=== PATIENT | female | born 1955 | race Caucasian/White ===

== ENCOUNTER 2022-05-19 06:11 | Observation (INO) ==
--- NOTE | 2022-05-10 16:54 | History & Physical Report ---
Date of Service May 10, 2022 Assessment & Plan (1) Osteoarthritis of left knee: Plan: PRE-OP Diagnosis: Left knee osteoarthritis Planned Procedure: Left total knee arthroplasty Plan: Patient is scheduled to undergo this procedure at the [facility] following the outpatient joint pathway on May 19, [address] Gudino. Risks and complications of the procedure such as: Infection, bleeding, pain, scarring, nerve blood vessel damage, weakness, wound problems, stiffness, incomplete relief of symptoms, hardware failure, hardware loosening, wear, fracture, tendon or ligament injury, blood clots, embolism, heart attack, stroke and were explained to the patient and her previous visit. Informed consent form procedure was obtained. Patient also understands risks of proceeding with surgical invention during the COVID-19 pandemic. Currently she is asymptomatic and has not been in contact with anyone positive for the virus recently. Preoperative medical clearance from her PCP is up-to-date, however she will see her PCP again on the due to the oxygen desaturation issue. Also up-to-date are CBC with differential, complete metabolic panel, PT/INR, blood type and screen, urinalysis, urine culture and sensitivity, EKG, h emoglobin A1c and a nasal culture for MRSA. During today's visit we reviewed the total knee packet. I answered all questions that the patient had in regards to her surgery. Patient states that she already has a walker, raised toilet seat and shower chair from her previous surgery. I again discussed antibiotic use following joint replacement surgery before dental procedures. We discussed the outpatient joint pathway and how it works. During today's visit the PDMP was checked and no red flags were raised that would prevent us from prescribing the patient an opioid analgesic for postoperative pain control. Prescriptions for oxycodone, diclofenac sodium, Zofran and Senokot were sent to the patient's pharmacy at her previous visit for her to use following surgery. I also provided her with prescriptions for tramadol to use for pain control prior to surgery. I also discussed with her that she will be on a baby aspirin twice daily for the first 30 days postoperatively for blood clot prevention. I also advised her that there is a possibility we will prescribe her an antibiotic before she is discharged from the hospital to use for infection prophylaxis. Patient plans on doing in-home physical therapy for the first 2 weeks postoperatively. I will provide this order to our nurse nurse manager and have this service set up. She is scheduled to see me for 2-week postoperative follow-up on June 01 at 10:45 AM. Patient verbalized understanding of all information provided during today's visit. She thanks for the care that she received. If she has questions or concerns that should arise prior to her surgery, she will contact clinic. This chart was completed utilizing [employer] voice recognition software. Grammatical errors, random word insertions, pronoun errors, and in complete sentences are an occasional consequence of the system. Any questions or concerns about the content, text, or information contained within the body of this dictation should be addressed directly to the physician for clarification. History of Present Illness Chief Complaint: Chief Complaint: Left knee pain Primary Care Provider: Kale Summers MD History of Present Illness (including history relevant to procedure): This 66-year-old female presents the clinic today for her second preoperative history and physical. Patient states that she underwent a right total knee arthroplasty with Dr. Gudino back on May 13, 2021 and has had great results. She states that over the past few months she has noticed significant pain in her left knee. She does have documented osteoarthritis. She states that she has reached full recovery for her right total knee arthroplasty and would like to undergo a left total knee arthroplasty at this time. Patient was initially scheduled for surgery on May 05. When she was in the preoperative area her O2 sats dropped to 90% when she was lying supine. Anesthesia was not comfortable with her proceeding so her surgery was canceled. Review Of Systems: A 12 point review of systems is performed and is unremarkable except for those things stated in the HPI and past medical history. Past Medical History: Problems: Right knee DJD Pre-op exam History of breast cancer Prediabetes BCC (basal cell carcinoma of skin) Weight disorder Biopsy of breast Cholecystectomy ENDOMETRIOSIS Breast mass Diagnostic aspiration of breast cyst DARIELA BSO - Total abdominal hysterectomy and bilateral salpingo-oophorectomy Procedure History Procedure Procedure Date Comments Chest x-ray 05/09/2022 - Impression:No active disease in the chest Total knee arthroplasty Right 05/13/2021 - Hitory of see scanned report TOTAL KNEE ARTHROPLASTY 05/13/2021 - right DEXA (dual energy X-ray absorptiometry) of lateral spine 05/07/2021 - Impression:AP spine L1-L4 T-score -1.3Femur neck left T-score -1.8Femur neck Right T-score -1.4Femur total left T-score -0.4Femur total right T-score -1.1Z-score -0.3 Punch biopsy of skin 12/02/2020 - 6mm Punch Colonoscopy 09/03/2020 - Pathology report showed 8 hyperplastic polyps and 1 serrated polyp. Repeat in 3 years. - COLO to cecum, hepatic flexure polyp 12 mm hot snare, 4 mm DC polyp CF, 7 sigmoid polyps CF Bilateral mastectomy 07/06/2020 COVID-19 vaccination 05/06/2020 - next one 06/03 Biopsy of breast 04/23/2020 - Stereotactic/tomosynthesis guided biopsy of faint loosely grouped calcifications within the right medial breast at approximately 2-3 o'clock, with clip placement. Mammogram of right breast 04/23/2020 - New biopsy clip status posrt right breast biopsy. Pathology results are pending. Mammography 04/15/2020 - 1. No suspicious mammographic or sonographic abnormality at the site of the palpable right upper outer quadrant breast lump pointed out by the patient. Recommend clinical follow-up.2. Faint loosely grouped amorphous in the right medial breast at approximately 2-3 o'clock are indeterminate and stereotactic biopsy is recommended for further evaluation.3. No mammographic evidence of malignancy in the left breast.4. Given the personal history of breast cancer and dense breasts mammographically, consider annual screening breast MRI in addition to annual mammography. MRI of breast 04/02/2020 - 1. No MRI evidence of malignancy in either breast. No enhancing mass or abnormality is seen at the site of the palpable lump pointed out by the patient in the right axillary tail region. Recommend clinical follow-up for the palpable right breast lump with associated pain, any decision to biopsy should be based off of clinical assessment.2. Note that the patient is also due for routine bilateral mammograms 04/11/20 therefore would recommend bilateral mammograms at this time and would recommend diagnostic mammograms given that the patient has a palpable lump.3. Given the personal history of breast cancer and dense breasts mammographically, consider annual screening bilateral breast MRI in addition to annual mammography which could be performed in 1 year. Electrodesiccation with curettage 05/08/2019 Shave biopsy 04/29/2019 - right upper chest Mammogram 01/09/2018 - ACR BI RADS Cat 1: negativeThere is no mammographic evidence of malignancy . Breast lumpectomy 2009 Cholecystectomy 2002 History of hysterectomy 1999 Allergies and Sensitivities: Adhesive bandage(rash) Current Home Meds: (Last Updated 05/10 15:12) albuterol (ProAir HFA 90 mcg/inh inhalation aerosol) 2 puff inhaled qid PRN: as needed for wheezing amoxicillin (amoxicillin 500 mg oral capsule) 2,000 mg PO As indicated one hour before dental and other procedures as directed azithromycin (Zithromax 250 mg oral tablet) 2 tablet x 1 day, then 1 tablet daily x 4 daysas directed on package labeling benzonatate (Tessalon 200 mg oral capsule) 200 mg PO q8h diclofenac (diclofenac sodium 75 mg oral delayed release tablet) 75 mg PO bid PRN: as needed for pain with food lidocaine topical (Lidoderm 5% topical patch) 1 patch topical Daily methylPREDNISolone (Medrol Dosepak 4 mg oral tablet) Take as directed on package labeling for 6 days. ondansetron (Zofran 4 mg oral tablet) 4 mg PO q8h post op nausea/vomiting oxyCODONE (oxyCODONE 5 mg oral tablet) 5 mg PO q4h post op pain control oxyCODONE (oxyCODONE 5 mg oral tablet) 1/2 tablet twice daily senna (Senokot 8.6 mg oral tablet) 8.6 mg PO qhs PRN: as needed for constipation with plenty of water traMADol (traMADol 50 mg oral tablet) 50 mg PO q4h PRN: as needed for pain not to exceed 400 mg/day Allergies Allergy/AdvReac Type Severity Reaction Status Date / Time adhesive Allergy Mild pruritic, Verified 05/02/22 08:39 erythematous rash morphine AdvReac Mild nausea, Verified 05/02/22 08:39 resolved with added medication, pt cannot recall Home Medications Medication Instructions Recorded Confirmed Type diclofenac sodium 75 mg 75 mg PO BID 05/02/22 05/05/22 History tablet,delayed release Past Med/Surg History Medical History Cancer RIGHT BREAST X 2: 2008-chemo + Herceptin; 2020-s/p bilat mastectomy and immediate pre-pectoral reconstruction 07/03/20 at [facility] [place]. Pt denies limb restriction History of COVID-19 12/2021, tested positive; asymptomatic pt Osteoarthritis Surgical History History of breast surgery RIGHT X 2-s/p bilat mastectomy and immediate pre-pectoral reconstruction 07/03/20 at [facility] [place]-limb restriction-rt side History of cholecystectomy History of hysterectomy TOTAL History of total right knee replacement R 05/13/21 epidural L4-L5 1 attempt + PNB. Hx of colonoscopy Hx of tonsillectomy Hx of wisdom tooth extraction Family History Father Family history of diabetes mellitus Social History Smoking Status: Never smoker Second Hand Exposure: Yes (growing up); Hx Alcohol Use: Yes Alcohol type: hard liquor Hx Substance Use: No Preferred Language: Bahamian Communication Ability: Effective Health Outcomes Liaison Required: No Beliefs That Will Affect Care: None Current Living Situation: Spouse current occupational status: retired Feels Safe at Home: Yes Assistive Devices: Glasses Review of Systems All systems reviewed & are unremarkable except as noted in Subjective Physical Exam Physical Exam: Physical Exam: (relevant to the procedure, including heart and lung evaluation) General: Alert and oriented x3 with proper grooming and hygiene Eyes: Pupils are equal and reactive to light with accommodation. Extraocular movements are intact Throat: Deferred due to COVID-19 precautions Cardiac: Regular rate and rhythm no murmurs or gallops appreciated Lungs: Clear to auscultation throughout with no wheezing, rales or rhonchi Abdomen: Mildly obese, nondistended, nontender with NABS Extremities: Left knee; range of motion is from 0 degrees of extension to 112 degrees of flexion. Patient experiences significant medial and lateral joint tenderness when knee is palpated in flexed position. Her patella is not mobile due to arthritic change within the patellofemoral joint. There is no varus or valgus laxity with stressing. AP drawer sign Indira test are negative. Patient was neurovascularly intact in the left lower extremity. Neuro: Cranial nerves II through XII are intact no motor or sensory deficit Skin: Normal appearance no open skin areas of discharge Results & Data ([facility]) Diagnostic Findings Studies (relevant to the procedure): X-rays done include bilateral PA flex views, and bilateral AP, lateral, Merchant views. These show right total knee arthroplasty components in good position with no evidence of complication. On the left knee, she has near [id number] arthritis in the medial tibial femoral compartment with tricompartmental osteophyte formation and lateral patellofemoral joint narrowing.
--- NOTE | 2022-05-12 13:13 | Anesthesiology Consultation ---
Date of Service May 12, 2022 Assessment & Plan (1) Encounter for pre-operative examination: Chart Review Chart Review: Acceptable Risk for Surgery (pending EKG DOS) and Patient NOT seen in Pre Admission Testing -Will repeat EKG stat DOS Pt initially scheduled 05/05/22- did arrive at hospital but noted to have congestion and O2 levels at 90%- decision was made to postpone surgery until symptoms improved. Covid test negative 05/05/22. Right UE limb restriction Upon review of chart- patient is an acceptable candidate for [facility] from anesthesia perspective. Pending patient is motivated, has good support and surgeon's office completes [facility] preop requirements- patient may proceed with outpatient TKA. -COVID screening: Per PAT nursing assessment on 05/12/22. Pt went to a concert 04/28/22 No known COVID-19 positive contacts or current COVID-19 related symptoms. Travel screen negative. Patient vaccinated for Covid. At surgeon discretion if preop Covid testing being done. Pt seen by PCP 05/02/22= seen for preoperative clearance. "She is medically stable and cleared for the scheduled TKA..." History Surgery Operation Date: 05/19/22 12:30 Proposed Procedures p Left Total Knee Arthroplasty - Evelio Gudino MD Height/Weight Height: 5 ft 2 in Weight: 79.379 kg Allergies Allergy/AdvReac Type Severity Reaction Status Date / Time adhesive Allergy Mild pruritic, Verified 05/12/22 12:55 erythematous rash morphine AdvReac Mild nausea, Verified 05/12/22 12:55 resolved with added medication, pt cannot recall Medications Home Medications Medication Instructions Recorded Confirmed Last Taken diclofenac sodium 75 mg 75 mg PO BID 05/02/22 05/12/22 05/02/22 07:00 tablet,delayed release Past Medical History Medical History (Updated 05/12/22 @ 13:39 by Ibeth Pimentel PA-C) Cancer RIGHT BREAST X 2 2008-chemo + Herceptin 2020-s/p bilat mastectomy and immediate pre-pectoral reconstruction 07[place]03[place] [facility] [place] History of COVID-19 12/2021, tested positive; asymptomatic pt Osteoarthritis Pre-diabetes Past Family History Family History Father Family history of diabetes mellitus Past Surgical History Surgical History History of breast surgery RIGHT X 2-s/p bilat mastectomy and immediate pre-pectoral reconstruction 07[place]03[place] [facility] [place]rt side History of cholecystectomy History of hysterectomy TOTAL History of total right knee replacement R 05/13/21 epidural L4-L5 1 attempt + PNB. Hx of colonoscopy Hx of tonsillectomy Hx of wisdom tooth extraction Social History Smoking Status: Never smoker Do You Dip or Chew Tobacco: No Hx Alcohol Use: Yes Alcohol type: hard liquor alcohol intake frequency: other Hx Substance Use: No substance use type: does not use Lab Results Anesthesia Preop Results Results Anesthesia Widget: WBC 5.76 K/ul (4.8-10.8) 04/11/22 Hgb 13.5 g/dl (12.0-16.0) 04/11/22 Hct 40.5 % (34.1-44.9) 04/11/22 Plt 317 K/uL (130-400) 04/11/22 Na 140 mmol/L (136-145) 04/11/22 K 4.2 mmol/L (3.5-5.1) 04/11/22 Cl 104 mmol/L (98-107) 04/11/22 CO2 31 mmol/L (21-32) 04/11/22 BUN 12 mg/dl (6-23) 04/11/22 Creat 0.72 mg/dl (0.6-1.2) 04/11/22 Glucose Level 93 mg/dl (70-99(Fasting)) 04/11/22 PT 10.3 Seconds (9.0-12.0) 04/11/22 INR 1.0 (0.9-1.1) 04/11/22 HA1c 6.0 % (4.5-5.6) H 04/11/22 Urine Color Yellow 04/11/22 Urine Appearance Clear (Clear) 04/11/22 Urine pH 5.0 (4.5-7.5) 04/11/22 Urine Specific [place] 1.020 (1.000-1.030) 04/11/22 Urine Protein Negative (Negative) 04/11/22 Urine Glucose (UA) Trace (Negative) H 04/11/22 Urine Ketones Trace (Negative) H 04/11/22 Urine Blood Trace (Negative) H 04/11/22 Urine Nitrite Negative (Negative) 04/11/22 Urine Bilirubin Negative (Negative) 04/11/22 Urine Urobilinogen Negative (Negative) 04/11/22 Urine Leukocyte Esterase Trace (Negative) H 04/11/22 Urine WBC (Auto) 10-30 /hpf (0-5) H 04/11/22 Urine RBC (Auto) 5-10 /hpf (0-4) H 04/11/22 Urine Hyaline Casts (Auto) 1-5 /lpf (0-5) 04/11/22 Urine Epithelial Cells (Auto) 20-30 /lpf (0-5) H 04/11/22 Urine Bacteria (Auto) Negative (Negative) 04/11/22 SARS-CoV-2, RNA, NAAT NEGATIVE (NEGATIVE) 05/05/22 Blood Type B Positive 05/05/22 Antibody Screen NEGATIVE 05/05/22 Testing Electrocardiogram Date: 11/14/21 NSR, rate 82 bpm Possible left atrial enlargement Septal infarct, age undetermined When compared to EKG from Apr 19, 2021- septal infarct is now present per cardio (Discussed with Dr. Garcia- patient has no physical limitations per nursing assessment; diet controlled prediabetes well controlled- will repeat EKG DOS- possible lead placement) Chest X-Ray Date: 05/09/22 Findings: + NAD FINDINGS: PA and lateral chest radiographs are correlated with chest CT dated 11/14/2021. The cardiomediastinal silhouette is unremarkable. Fibrotic change at the right apex is similar to previous and likely treatment related. Chronic interstitial thickening is observed. There is no airspace consolidation typical for pneumonia or pleural effusion. There is no pneumothorax. The skeletal structures are osteopenic. The bony thorax appears intact. Mild scoliosis is present in the thoracic spine. Surgical clips are seen in the right axilla. Cholecystectomy clips are noted in the right upper quadrant.
[~2022-05-19 06:11] MED LIST: ACETAMINOPHEN 500 MG TAB PO SCH; CeleBREX 200 MG CAP PO SCH; FAMOTIDINE 20 MG TAB PO SCH; LR 500ML BOLUS, THEN 15ML/HR IV SCH; LR 60ML/HR IV SCH; ROPIVACAINE 0.5% HCL/PF 150 MG, BUPIVACAINE 0.75% MPF 20 ML, EPINEPHrine 0.15 MG, Ketor... INFIL SCH; Scopolamine 1 MG TDSY TD SCH; TRANEXAMIC ACID 1,000 MG **IV Intra-op IV SCH; TRANEXAMIC ACID 1,000 MG **IV Pre-op IV SCH; ceFAZolin 2000MG 2,000 MG/15 ML SYR IV SCH; dexAMETHasone 4 MG TAB PO SCH; traMADol HCL 50 MG TABLET PO SCH
[2022-05-19] MEDS ORDERED: ROPIVACAINE 0.5% 5 MG/ML 30 ML VIAL ONE (06:30)
[2022-05-19] MEDS ORDERED: LIDOCAINE 2%/EPINEPHRINE 1:200,000 20 ML PF ONE (06:31)
[2022-05-19] MEDS ORDERED: MEPIVACAINE HCL 2% 20 ML VIAL ONE (06:41)
[2022-05-19] MEDS ORDERED: PROPOFOL IV EMULSION 10 MG/ML 20 ML VIAL IV ONE ×4 (07:47→09:21)
[2022-05-19] MEDS ORDERED: LIDOCAINE 2% MPF LOCAL 5 ML VIAL INFIL ONE (07:47)
[2022-05-19] MEDS ORDERED: MIDAZOLAM HCL 1 MG/ML 2ML VIAL ONE (07:47)
[2022-05-19] MEDS ORDERED: fentaNYL citrate PF 100 MCG/2 ML VIAL ONE (07:47)
[2022-05-19] MEDS ORDERED: ORTHO JOINT ANESTHETIC ONE (07:55)
--- NOTE | 2022-05-19 08:03 | History & Physical Bridge Note ---
Date of Service May 19, 2022 History & Physical Bridge Note I have examined the patient, reviewed the History & Physical and in the interval since the performance of the History & Physical I have noted the following changes of clinical significance: patient had surgery cancelled 2 weeks ago, she reports no respiratory symptoms this morning and has been medically cleared to proceed with surgery.
[2022-05-19] MEDS ORDERED: ONDANSETRON INJ 2 MG/ML 2 ML VIAL IV PRN ×2 (08:21→15:35)
[2022-05-19] MEDS ORDERED: fentaNYL citrate PF 100 MCG/2 ML VIAL IV PRN (08:21)
[2022-05-19] MEDS ORDERED: ePHEDrine sulfate 50 MG/ML AMP IV PRN (08:21)
[2022-05-19] MEDS ORDERED: ATROPINE SULFATE 0.1 MG/ML 10ML SYR IV PRN ×2 (08:21→15:35)
[2022-05-19] MEDS ORDERED: KETAMINE 50 MG/5 ML SYRINGE ONE (08:31)
[2022-05-19] MEDS ORDERED: GLYCOPYRROLATE 0.2 MG/ML VIAL ONE (08:31)
--- NOTE | 2022-05-19 10:08 | Operative Report ---
Post Operative Report Pre & Post Diagnosis Operation Date: 05/19/22 08:15 Pre-Op Diagnosis: Left Knee Osetoarthritis Post-Op Diagnosis: Left Knee Osetoarthritis I identified the patient and participated in the time-out.: Yes Procedure Operation Date: 05/19/22 08:15 Actual Procedures p Left Total Knee Arthroplasty, cemented.(Left) - Evelio Gudino MD Surgeon Evelio Gudino MD Horticulture Supervisor Deann Morales PA-C Estimated Blood Loss 50 Findings Consistent with Post-Op Diagnosis Specimens none Description of Procedure I was present during the entire case assisting with positioning, prepping, draping, wound retraction, wound closure, and dressing application. No fellow present. Please see Dr. Gudino procedure note for specifics of the case. I attest to the content of the Intraoperative Record and any orders documented therein. Any exceptions are noted below.
--- NOTE | 2022-05-19 10:09 | Operative Report ---
Post Operative Report Pre & Post Diagnosis Operation Date: 05/19/22 08:15 Pre-Op Diagnosis: Left Knee Osetoarthritis Post-Op Diagnosis: Left Knee Osetoarthritis I identified the patient and participated in the time-out.: Yes Procedure Operation Date: 05/19/22 08:15 Actual Procedures p Left Total Knee Arthroplasty, cemented.(Left) - Evelio Gudino MD Surgeon Evelio Gudino MD Automobile Relocation Engineer BRIELLE Morales PA-C Estimated Blood Loss 50 Findings Consistent with Post-Op Diagnosis Specimens Left knee bone and soft tissue contents Anesthesia Type Spinal MAC Complications none Disposition Disposition: Recovery Room Indications 66-year-old female with left knee osteoarthritis refractory to conservative management. X-rays demonstrate tricompartmental osteophyte, joint space narrowing, and subchondral sclerosis. I have previously done a right total knee arthroplasty for her with a good result. She now desires to have left total knee arthroplasty performed. I reviewed the risks and benefits of surgery, alternatives, and expected outcomes. All questions were answered. She elects to proceed. All questions were answered. Informed consent was signed. Description of Procedure Patient was identified in the preoperative holding area where the surgical site, left knee, was marked. Spinal anesthetic was placed by anesthesia. Patient was brought back to the operating room, placed on the operating room table, and IV sedation was administered. A bump was placed underneath the ipsilateral hip. All bony prominences were padded. Perioperative antibiotics and tranexamic acid were administered. Exam under anesthesia was performed. This demonstrated patient's range of motion to be 5 degrees to 105 degrees. Stable to varus and valgus at 5 and 30 degrees. The surgical site was prepped and draped in the normal sterile fashion. Prior to incision a multidisciplinary timeout was called. All in the room were in agreement. We began by exsanguinating the limb with an Esmarch bandage. Tourniquet was inflated to 250 mmHg. A 16 cm long incision was made over the anterior aspect of the knee. I dissected through the subcutaneous tissues to the level of the fascia. Full-thickness flaps were raised above the fascia. A median parapatellar arthrotomy was made. Half the fat pad was excised. A medial release was performed with Bovie electrocautery on the proximal tibia. Synovitis in the knee and suprapatellar pouch was removed. The patella was then everted and held with 2 towel clips. The thickness of the patella was measured at 24 mm. Patellar resection was performed. Caliper showed the patella thickness now to be 15 mm. A size 35 trial was placed and had a great fit. The 3 drill holes were placed then the trial button was placed. The patellar thickness was now 25 mm which I was very happy with. The patellar trial was then removed, and the knee was flexed up. Retractors were placed to protect the MCL and LCL. Osteophytes were removed from the femoral condyles and intercondylar notch. The ACL and PCL were excised. Intramedullary drill guide was drilled into the femur. Distal femoral cutting guide was placed set at 5 degrees of valgus to resect 10 mm off the distal femur. Distal femoral resection was made without difficulty. The tibia was then exposed. The lateral meniscus was sharply excised. The tibial cutting jig was positioned in line with the tibial shaft in the coronal plane and with 3 degrees of posterior slope in the sagittal plane to resect 4 mm off the more involved compartment. The jig was then pinned in position and the tibial cut was made. We then brought the knee into full extension. Lamina spreaders were placed. The medial meniscus was excised. The extension block was then placed for 6 mm thickness poly. This gave us full extension and excellent stability to varus and valgus stress. Next the extension block was removed, the knee was flexed up, collateral ligaments were protected, and the epicondylar axis and Whitesides line were marked out on the distal femoral cut. Femoral sizing guide was placed. External rotation was set at 3 degrees so that the posterior cut would be parallel with the epicondylar axis and perpendicular with Whitesides line. The patient sized to a size 5 femur. 2 pins were then placed through the jig into the distal femur. The jig was removed and the appropriately sized 4-in-1 cutting jig was placed over the pins, then fixated to the bone using threaded, headed pins. We confirmed that we would not notch the femur with our anterior cut. Our 4 cuts were then made. The cutting jig was removed. The flexion block was then placed with the knee held at 90 degrees. There was excellent stability to varus and valgus at 90 degrees with no gapping medially or lateral ly. Next the box cutting jig was placed on the distal femur. The box cut was made and the femoral trial was impacted into position. Lug holes were drilled in the distal femur. We then reexposed the tibia. The tibia was sized to a 4 for a fixed bearing component. The tibial tray with a 6 mm thickness polyethylene liner was placed on the cut tibial surface and the knee was brought through a fu ll range of motion. There was excellent stability to varus valgus stress throughout a full range of motion, which was approximately 0-125 degrees. Bovie electrocautery was used to ramandeep the tibia at the site where the tibial tray rested in full extension. We then flexed up the knee, removed the polyethylene liner, and pinned the tibial tray into position to match the cautery ramandeep. The intramedullary drill followed by the keel punch were used to prepare the tibia. Next the trial components were removed. I then injected the posterior capsule and periosteum with the periarticular injection cocktail. The bone cuts were then irrigated and dried while the cement was mixed on the back table. The femoral component was cemented on first. Excess cement was removed. A lap sponge was placed over the femoral component for protection, then the tibia was subluxated anteriorly. The all polyethylene tibial component was then cemented in place. Again excess cement was removed. The knee was brought into full extension and held there until the cement cured. The patella was cemented and clamped. Dilute Betadine solution was then allowed to soak in the knee while the cement cured. Once the cement was fully cured, the knee was irrigated out, the tourniquet was let down and meticulous hemostasis was ensured. The knee was brought through a full range of motion. I was were very happy with the patella tracking and the stability. We then began to close. Interrupted 0 Vicryl suture was used to repair the patellar retinaculum in [id number] fashion. The quadriceps and patellar tendons were run with #1 Vicryl. The deep dermal layer was closed with interrupted 2-0 Vicryl. Dermabond and Zipline was used for the skin, followed by a Silverlon dressing. A compressive Tong wrap was placed and the knee was placed into a knee immobilizer. Patient's sedation was lifted and was transferred to recovery room in stable condition. Summary of implants: Depuy Attune Posterior Stabilized Cemented Femur, size 5 left Attune All-polyethylene tibial component, posterior stabilized 6 mm thickness, size 4 Attune patella medialized dome, size 35 2 batches of simplex high viscosity bone cement Postoperative course: Patient will be discharged home from the recovery room when she passes the safety checklist for outpatient total joint arthroplasty. Weightbearing as tolerated with a walker with no knee range of motion for 48 hours. Aspirin for DVT prophylaxis. I attest to the content of the Intraoperative Record and any orders documented therein. Any exceptions are noted below.
--- NOTE | 2022-05-19 10:19 | Anesthesiology Progress Note ---
Date of Service May 19, 2022 Anesthesia Post Procedure Vital Signs Vital Signs: Temp Pulse Resp BP Pulse Ox O2 Del Method 05/19/22 06:30 36.6 C 95 H 20 154/89 H 97 Room Air Transfer of Care Handoff Completed per policy Notes Mental Status: alert / awake / arousable and participated in evaluation Nausea / Vomiting: adequately controlled Pain: adequately controlled Airway Patency, RR, SpO2: stable & adequate BP & HR: stable & adequate Hydration State: stable & adequate Neuraxial Anesthesia: was administered and sensory block is resolving Anesthetic Complications: no major complications apparent and Pt Satisfied with anesthetic care
--- NOTE | 2022-05-19 10:58 | XRay Report ---
LEFT KNEE 2 VIEWS History: Left total knee arthroplasty. Degenerative arthritis. Postop. FINDINGS: The patient is status post a left total knee arthroplasty. The hardware is intact. No fract ure or dislocation. IMPRESSION: Left total knee arthroplasty. No evidence for hardware complication. ACT 112: Negative or not required by law. Electronically signed by: Keven Pal M.D. 05/19/2022 10:57 AM
[2022-05-19] MEDS: oxyCODONE/ACETAMINOPHEN 5mg/325mg TAB PO PRN ×2 (11:51→15:37)
--- NOTE | 2022-05-19 12:22 | Hospitalist Consultation ---
Date of Consultation May 19, 2022 History of Present Illness Attending Physician: Evelio Gudino MD History of Present Illness Mary Jane Ibarra is a 66yo F with a PMhx of preDM, HLD, breast cancer, bilateral OA with surgical history of knee replacement [] who presented for scheduled L TKA. GRIFFIN FRYE was called in ASU post-op for symptomatic bradycardia with hypotension. Pt pressure improved with supine positing. 1L NSS, atropine ordered. Prior to atropine delivery 1x phenylephrine was given. Pt pressure and HR normalized, atropine was held. Pt remained clinically asymptomatic without lightheadedness/dizziness/confusion at bedside. Pt was transferred to PCU for additional monitoring. Pt received oxycodone-apap [] Atropine Post Operative Symptomatic Bradycardia and hypotension - BP/HR normalized w/ 1x phenylephrine. Atropine held - 1L NSS xfused - EKG nsr, no ST segment changes. No inversion. No HB. 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 - Past sx history [] - Pt reports she takes no other medications, last medication was zyrtek 2 days prior to surgery [] Allergies Allergy/AdvReac Type Severity Reaction Status Date / Time adhesive Allergy Mild pruritic, Verified 05/19/22 06:34 erythematous rash morphine AdvReac Mild nausea, Verified 05/19/22 06:34 resolved with added medication, pt cannot recall Home Medications Medication Instructions Recorded Confirmed Type diclofenac sodium 75 mg 75 mg PO BID 05/02/22 05/19/22 History tablet,delayed release Patient History Medical History Cancer RIGHT BREAST X 2 2008-chemo + Herceptin 2020-s/p bilat mastectomy and immediate pre-pectoral reconstruction 07/03/20 at [facility] [place]. History of COVID-19 12/2021, tested positive; asymptomatic pt Osteoarthritis Pre-diabetes Surgical History History of breast surgery RIGHT X 2-s/p bilat mastectomy and immediate pre-pectoral reconstruction 07/03/20 at [facility] [place]-limb restriction-rt side History of cholecystectomy History of hysterectomy TOTAL History of total right knee replacement R 05/13/21 epidural L4-L5 1 attempt + PNB. Hx of colonoscopy Hx of tonsillectomy Hx of wisdom tooth extraction Family History Father Family history of diabetes mellitus Social History Smoking Status: Never smoker Second Hand Exposure: No; Do You Dip or Chew Tobacco: No; Tobacco Cessation Education Requested by Patient: No Hx Alcohol Use: Yes Alcohol type: hard liquor Hx Substance Use: No Preferred Language: Swedish Communication Ability: Effective Bead Forming Machine Set Up Operator Required: No Beliefs That Will Affect Care: None Current Living Situation: Spouse current occupational status: retired Other Information That Helps Us Care for You: No Feels Safe at Home: Yes Safety Concerns: Feels Safe At This Time Assistive Devices: Glasses Results & Data Results & Data ([facility]) Vital Signs (Past 12 Hours) Vital Signs Temp Pulse Pulse Resp BP BP Pulse Ox 05/19/22 10:40 36.8 C 90 18 140/76 96 05/19/22 10:20 96 H 18 135/83 95 05/19/22 10:30 94 H 12 138/78 95 05/19/22 10:10 105 H 20 122/66 95 05/19/22 10:09 36.3 C L 104 H 16 126/67 96 05/19/22 06:30 36.6 C 95 H 20 154/89 H 97 O2 Del Method 05/19/22 10:40 Room Air 05/19/22 10:20 Room Air 05/19/22 10:30 Room Air 05/19/22 10:10 Room Air 05/19/22 10:09 Room Air 05/19/22 06:30 Room Air PG Care Time/CCT Total # of Minutes Spent Total Time Spent with Patient: Total time spent is greater than 50% in coordination of care (as documented) at patient's floor/unit and/or counseling patient: Coding Diagnoses
--- NOTE | 2022-05-19 12:50 | History & Physical Report ---
Date of Service May 19, 2022 Assessment & Plan (1) Bradycardia: Plan: Post Operative Symptomatic Bradycardia and hypotension - BP/HR normalized w/ 1x phenylephrine. Atropine held - 1L NSS xfused - EKG nsr, no ST segment changes. No inversion. No HB. 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 Observe overnight, atropine on- call as needed, if doing well anticipate discharge tomorrow. Suspect 2/2 anesthetic clearance. EKG without evidence of acute ischemia or AK. No prolonged hypotension during procedure on review Left TKA DVT prophylaxis, ambulation, pain control per surgical team Patient denies other chronic medical problems/medications. Did not take any OTC medications prior to surgery DVT prophylaxis: Per surgical team, anticipate aspirin twice daily CODE STATUS: Full Disposition: PCU for monitoring post bradycardia Diet: Regular History of Present Illness Primary Care Provider: Kale Summers MD Mary Jane Ibarra is a 66yo F with a PMhx of preDM, HLD, breast cancer, bilateral OA with surgical history of knee replacement [] who presented for scheduled L TKA. GRIFFIN FRYE was called in ASU post-op for symptomatic bradycardia with hypotension. Pt pressure improved with supine positing. 1L NSS, atropine ordered. Prior to atropine delivery 1x phenylephrine was given. Pt pressure and HR normalized, atropine was held. Pt remained clinically asymptomatic without lightheadedness/dizziness/confusion at bedside. Pt was transferred to PCU for additional monitoring. Pt received oxycodone-apap prior to admission. At bedside patient denies chest pain, chest pressure, lightheadedness, dizziness, shortness of breath and presyncope. Has never had a reaction to anesthesia before, says that several surgeries which were reviewed below. Past surgical history: Bilateral mastectomy with pectoral reconstruction Cholecystectomy Total hysterectomy Right knee replacement 2021 with epidural block No prior reaction anesthesia with above procedures Medical History: Reviewed Medications: Reviewed Surgical History: Reviewed Allergies: Reviewed Social History:Reviewed Code Status: Full Allergies Allergy/AdvReac Type Severity Reaction Status Date / Time adhesive Allergy Mild pruritic, Verified 05/19/22 06:34 erythematous rash morphine AdvReac Mild nausea, Verified 05/19/22 06:34 resolved with added medication, pt cannot recall Home Medications Medication Instructions Recorded Confirmed Type diclofenac sodium 75 mg 75 mg PO BID 05/02/22 05/19/22 History tablet,delayed release acetaminophen 500 mg tablet 1,000 mg PO Q8 #30 tabs 05/20/22 Rx (Tylenol Extra Strength) aspirin 81 mg chewable tablet 81 mg PO BID 30 days #60 tabs 05/20/22 Rx docusate sodium 100 mg capsule 100 mg PO BID #60 caps 05/20/22 Rx oxycodone 5 mg tablet 5 - 10 mg PO Q4H PRN pain #28 tabs 05/20/22 Rx sennosides 8.6 mg tablet (Senokot) 17.2 mg PO HS #60 tabs 05/20/22 Rx Past Med/Surg History Medical History (Updated 05/20/22 @ 10:50 by Connie Galarza MD) Cancer RIGHT BREAST X 2 2008-chemo + Herceptin 2020-s/p bilat mastectomy and immediate pre-pectoral reconstruction 07/03/20 at [facility] [place]. History of COVID-19 12/2021, tested positive; asymptomatic pt Osteoarthritis Pre-diabetes Surgical History (Updated 05/20/22 @ 09:52 by Murali Morales PA-C) History of breast surgery RIGHT X 2-s/p bilat mastectomy and immediate pre-pectoral reconstruction 07/03/20 at [facility] [place]-limb restriction-rt side History of cholecystectomy History of hysterectomy TOTAL History of total right knee replacement R 05/13/21 epidural L4-L5 1 attempt + PNB. Hx of colonoscopy Hx of tonsillectomy Hx of wisdom tooth extraction Family History Father Family history of diabetes mellitus Social History Smoking Status: Never smoker Second Hand Exposure: No; Do You Dip or Chew Tobacco: No; Tobacco Cessation Education Requested by Patient: No Hx Alcohol Use: Yes Alcohol type: hard liquor Hx Substance Use: No Preferred Language: Japanese Communication Ability: Effective External Auditor Required: No Beliefs That Will Affect Care: Spiritual Current Living Situation: Spouse current occupational status: retired Other Information That Helps Us Care for You: No Feels Safe at Home: Yes Safety Concerns: Feels Safe At This Time Assistive Devices: Walker Review of Systems 2 Review of Systems: All systems reviewed & are unremarkable except as noted in Subjective Physical Exam Physical Exam: General: A&Ox3. NAD. Cooperative. HEENT: Atraumatic, normocephalic. Pulm: CTAB A&P. -wheezes, -rales, -rhonchi. Symmetrical chest rise. No increased work of breathing. No respiratory distress. Cardiac:Bradycardic in the 40s initially, hypotensive to 60s. Did receive 1 push of phenylephrine, post push eval normotensive with heart rate 6070s. Abdominal: Nontender, nondistended, soft. BS present. Extremities: Left knee in postsurgical wrap, sensation intact in toes, is able to wiggle toes. PT pulse intactCap refill intact On clinical reevaluation in afternoon patient remains normotensive with regular heart rate Results & Data Results & Data ([facility]) Vital Signs (Past 12 Hours) Vital Signs Temp Pulse Pulse Resp BP BP Pulse Ox 05/19/22 10:40 36.8 C 90 18 140/76 96 05/19/22 10:20 96 H 18 135/83 95 05/19/22 10:30 94 H 12 138/78 95 05/19/22 10:10 105 H 20 122/66 95 05/19/22 10:09 36.3 C L 104 H 16 126/67 96 05/19/22 06:30 36.6 C 95 H 20 154/89 H 97 O2 Del Method 05/19/22 10:40 Room Air 05/19/22 10:20 Room Air 05/19/22 10:30 Room Air 05/19/22 10:10 Room Air 05/19/22 10:09 Room Air 05/19/22 06:30 Room Air PG Care Time/CCT Total # of Minutes Spent Total Time Spent with Patient: Total time spent is greater than 50% in coordination of care (as documented) at patient's floor/unit and/or counseling patient: Coding Level of Care Code 21678 INT INP/OBS CARE 3/75MIN Diagnoses Bradycardia R00.1
[2022-05-19 13:58] LABS: Calcium 8.9 mg/dl (8.5-10.1); Magnesium 1.7 mg/dl (1.7-2.4)
[2022-05-19 14:04] LABS: BUN Creatinine Ratio 16.4 (10-20); Creatinine Clr Calc Pharmacy 92.9 ml/min; Est GFR (African American) 110.3 ml/min; Est GFR (Non-African American) 95.1 ml/min
[2022-05-19 14:17] LABS: Hematocrit (blood only) 35.5 % (37.0-47.0); Hemoglobin 12.4 g/dl (12.0-16.0); Mean Corpuscular Hemoglobin 30.9 pg (25.0-34.0); Mean Corpuscular Hgb Conc 34.9 g/dL (32.0-36.0); Mean Corpuscular Volume 88.5 fL (80.0-100.0); Mean Platelet Volume 9.2 fL (9.4-12.4); Platelet Count 315 K/uL (130-400); RDW Coefficient of Variation 12.1 % (11.5-14.5); RDW Standard Deviation 39.7 fL (36.4-46.3); Red Blood Count 4.01 M/uL (4.20-5.40); White Blood Count 13.04 K/ul (4.8-10.8)
[2022-05-19 14:39] LABS: Basophils # (auto) 0.04 K/uL (0-0.2); Basophils % (auto) 0.3 %; Immature Granulocytes # (auto) 0.06 K/uL (0.01-0.20); Immature Granulocytes % (auto) 0.5 %; Lymphocytes # (auto) 0.52 K/uL (1.2-3.4); Monocytes # (auto) 0.11 K/uL (0.11-0.59); Monocytes % (auto) 0.8 %; Neutrophils # (auto) 12.31 K/uL (1.40-6.50); Neutrophils % (auto) 94.4 %
[2022-05-19] MEDS ORDERED: bisacodyL 10 MG SUPP PR PRN (15:35)
[2022-05-19] MEDS ORDERED: HYDROmorphone INJ 0.5 MG/0.5 ML SYR IV PRN (15:35)
[2022-05-19] MEDS ORDERED: diphenhydrAMINE 50 MG/ML VIAL IV PRN (15:35)
[2022-05-19] MEDS ORDERED: ALUMINUM/MAGNESIUM SUSP 30 ML UDC PO PRN (15:35)
[2022-05-19] MEDS ORDERED: METOCLOPRAMIDE HCL INJ 5 MG/ML 2 ML VIAL IV PRN (15:35)
[2022-05-19] MEDS ORDERED: NALOXONE HCL 0.4 MG/1 ML VIAL/CARP IV PRN (15:35)
[2022-05-19] MEDS ORDERED: MAGNESIUM HYDROXIDE SUSP 30 ML UDC PO PRN (15:35)
[2022-05-19] MEDS ORDERED: oxyCODONE HCL IR 5 MG TAB (IMMEDIATE RELEASE) PO PRN (15:35)
[2022-05-19] MEDS ORDERED: ACETAMINOPHEN 325 MG TAB PO PRN (15:37)
[2022-05-19] MEDS: Scopolamine CHECK PATCH PLACEMENT SCH (15:54)
--- NOTE | 2022-05-19 16:10 | XRay Report ---
XR knee LT 1 or 2V routine CLINICAL HISTORY: Surgical Post Op TECHNIQUE: 2 views of the left knee were obtained. Comparison: Comparison is made to left knee radiographs 05/19/2022 FINDINGS: Patient is status post total knee arthroplasty with expected postsurgical changes including soft tiss ue swelling and subcutaneous emphysema. No periarticular lucency or hardware fracture is seen. IMPRESSION: Expected postoperative appearance status post placement of total knee arthroplasty. ACT 112: Negative or not required by law. Electronically signed by: Pritesh Armstrong M.D. 05/19/2022 4:09 PM
[2022-05-19 16:11] LABS: Hematocrit (blood only) 34.9 % (37.0-47.0)
[2022-05-19] MEDS: KETOROLAC TROMETHAMINE 15 MG/ML VIAL IV SCH ×2 (16:45→21:36)
[2022-05-19] MEDS: DOCUSATE SODIUM 100 MG CAP PO SCH (20:02)
[2022-05-19] MEDS ORDERED: SENNA 8.6 MG TAB PO SCH (21:00)
[2022-05-19] MEDS: ceFAZolin 2000MG 2,000 MG/15 ML SYR IV SCH (21:35)
[2022-05-19] MEDS: ACETAMINOPHEN 500 MG TAB PO SCH (21:37)
[2022-05-19] MEDS ORDERED: TRANEXAMIC ACID / 0.7% NACL 1,000 MG/100 ML BAG IV SCH (21:45)
[2022-05-19 23:32] LABS: Hematocrit (blood only) 32.5 % (37.0-47.0); Hemoglobin 11.2 g/dl (12.0-16.0)
[2022-05-20] MEDS: KETOROLAC TROMETHAMINE 15 MG/ML VIAL IV SCH ×2 (03:46→09:56)
--- NOTE | 2022-05-20 05:06 | Electrocardiogram Report ---
Test Reason : Blood Pressure : / mmHG Vent. Rate : 081 BPM Atrial Rate : 081 BPM P-R Int : 152 ms QRS Dur : 086 ms QT Int : 398 ms P-R-T Axes : 050 016 052 degrees QTc Int : 462 ms Normal sinus rhythm Normal ECG When compared with ECG of 14-NOV-2021 09:36, Criteria for Septal infarct are no longer Present Confirmed by Flo Lucas ([id number]) on 05/20/2022 5:06:23 AM Referred By: Evelio Gudino Confirmed By:Flo Lucas
--- NOTE | 2022-05-20 05:30 | Electrocardiogram Report ---
Test Reason : Blood Pressure : / mmHG Vent. Rate : 073 BPM Atrial Rate : 073 BPM P-R Int : 160 ms QRS Dur : 092 ms QT Int : 426 ms P-R-T Axes : 052 020 055 degrees QTc Int : 469 ms Normal sinus rhythm with sinus arrhythmia Normal ECG When compared with ECG of 19-MAY-2022 06:31, No significant change was found Confirmed by Flo Lucas ([id number]) on 05/20/2022 5:29:38 AM Referred By: Evelio Gudino Confirmed By:Flo Lucas
[2022-05-20] MEDS: ceFAZolin 2000MG 2,000 MG/15 ML SYR IV SCH (06:09)
[2022-05-20] MEDS: ACETAMINOPHEN 500 MG TAB PO SCH (06:12)
[2022-05-20 06:33] LABS: Basophils # (auto) 0.02 K/uL (0-0.2); Basophils % (auto) 0.2 %; Hematocrit (blood only) 31.4 % (37.0-47.0); Hemoglobin 10.9 g/dl (12.0-16.0); Immature Granulocytes # (auto) 0.05 K/uL (0.01-0.20); Immature Granulocytes % (auto) 0.4 %; Lymphocytes # (auto) 0.91 K/uL (1.2-3.4); Mean Corpuscular Hemoglobin 30.6 pg (25.0-34.0); Mean Corpuscular Hgb Conc 34.7 g/dL (32.0-36.0); Mean Corpuscular Volume 88.2 fL (80.0-100.0); Monocytes # (auto) 0.84 K/uL (0.11-0.59); Monocytes % (auto) 6.4 %; Neutrophils # (auto) 11.25 K/uL (1.40-6.50); Platelet Count 282 K/uL (130-400); RDW Coefficient of Variation 11.9 % (11.5-14.5); RDW Standard Deviation 38.5 fL (36.4-46.3); Red Blood Count 3.56 M/uL (4.20-5.40); White Blood Count 13.07 K/ul (4.8-10.8)
[2022-05-20 07:11] LABS: Albumin Globulin Ratio 1.3 (0.9-2); Albumin Level 3.5 gm/dl (3.4-5.0); BUN Creatinine Ratio 17.1 (10-20); Bilirubin,Total 0.7 mg/dl (0.2-1.0); Calcium 9.6 mg/dl (8.5-10.1); Est GFR (African American) 105.4 ml/min; Est GFR (Non-African American) 90.9 ml/min; Globulin 2.7 gm/dl (2.5-4.0); Potassium 4.3 mmol/L (3.5-5.1); Total Protein 6.2 gm/dl (6.0-8.3)
[2022-05-20] MEDS: Scopolamine CHECK PATCH PLACEMENT SCH ×2 (08:00)
[2022-05-20] MEDS: DOCUSATE SODIUM 100 MG CAP PO SCH (08:33)
[2022-05-20] MEDS ORDERED: MULTIVITAMIN TAB PO SCH (09:00)
--- NOTE | 2022-05-20 09:54 | Orthopedic Progress Note ---
Date of Service May 20, 2022 Assessment & Plan (1) S/P total knee arthroplasty: Plan: Weightbearing as tolerated with walker assistance and immobilizer for the first 48 hours postoperatively Pain controlled p.o. medication DVT prophylaxis with aspirin and THEE stockings Keep Silverlon dressing in place until 2-week follow-up. Ice with easy wrap Plan is to discharge home today with in-home physical therapy for the first 2 weeks postoperatively Patient will be evaluated by Dr. Galarza later this morning Follow-up at [facility] orth[facility] as previously scheduled With questions contact our clinic at [phone] Admission and Anticipated Discharge Date Admission Date: May 19, 2022 Subjective This 66-year-old female is day 1 status post left total knee arthroplasty. Patient was initially slated to be outpatient for this procedure however while in the recovery area she developed hypotension and her heart rate dropped. She was administered some phenylephrine which normalized her vital signs. She was admitted by the hospitalist service overnight for monitoring in the ICU. This morning patient is doing very well. She has completed physical therapy without significant issue. She is very anxious to be discharged home later this morning. I spoke with Dr. Galarza who is covering the patient and recommended that patient be discharged home after her evaluation this morning. Currently the patient denies chest pain, shortness of breath, fever, chills, sweats, lethargy, numbness or tingling in her left lower extremity. She also denies nausea, vomiting or difficulty voiding. Review of Systems Review of Systems: All systems reviewed & are unremarkable except as noted in Subjective Physical Exam Physical Exam: Left lower extremity: Outer dressing was removed. Silverlon is clean dry and intact. Patient is able to perform an active straight leg raise test. She is able to actively dorsi and plantarflex her foot without issue. Knee range of motion is from 0 degrees of extension to 90 degrees of flexion without difficulty. Quad strength is 3+ out of 5. Patient is neurovascularly intact in the left lower extremity. Results & Data ([facility]) Vital Signs (Past 12 Hours) Vital Signs Temp Pulse Pulse Resp BP BP Pulse Ox 05/20/22 08:00 91 H 05/20/22 06:00 82 19 138/64 94 05/20/22 05:00 78 20 128/69 96 05/20/22 04:00 36.9 C 71 14 116/69 94 05/20/22 03:00 83 14 120/60 92 05/20/22 02:00 78 12 117/61 92 05/20/22 01:00 78 14 116/63 94 05/20/22 00:00 37.1 C 84 15 109/57 L 95 05/19/22 23:00 79 15 127/62 95 05/19/22 22:00 82 16 132/72 94 O2 Del Method 05/20/22 08:00 05/20/22 06:00 Room Air 05/20/22 05:00 Room Air 05/20/22 04:00 Room Air 05/20/22 03:00 Room Air 05/20/22 02:00 Room Air 05/20/22 01:00 Room Air 05/20/22 00:00 Room Air 05/19/22 23:00 Room Air 05/19/22 22:00 Room Air Diagnostic Findings Laboratory Results WBC 13.07 K/ul (4.8-10.8) H 05/20/22 05:42 RBC 3.56 M/uL (4.20-5.40) L 05/20/22 05:42 Hgb 10.9 g/dl (12.0-16.0) L 05/20/22 05:42 Hct 31.4 % (37.0-47.0) L 05/20/22 05:42 MCV 88.2 fL (80.0-100.0) 05/20/22 05:42 MCH 30.6 pg (25.0-34.0) 05/20/22 05:42 MCHC 34.7 g/dL (32.0-36.0) 05/20/22 05:42 RDW Std Deviation 38.5 fL (36.4-46.3) 05/20/22 05:42 RDW Coeff of Jerel 11.9 % (11.5-14.5) 05/20/22 05:42 Plt Count 282 K/uL (130-400) 05/20/22 05:42 MPV 9.0 fL (9.4-12.4) L 05/20/22 05:42 Immature Gran % (Auto) 0.4 % 05/20/22 05:42 Neut % (Auto) 86.0 % 05/20/22 05:42 Lymph % (Auto) 7.0 % 05/20/22 05:42 [place] % (Auto) 6.4 % 05/20/22 05:42 Eos % (Auto) 0.0 % 05/20/22 05:42 Baso % (Auto) 0.2 % 05/20/22 05:42 Neut # (Auto) 11.25 K/uL (1.40-6.50) H 05/20/22 05:42 Lymph # (Auto) 0.91 K/uL (1.2-3.4) L 05/20/22 05:42 [place] # (Auto) 0.84 K/uL (0.11-0.59) H 05/20/22 05:42 Eos # (Auto) 0.00 K/uL (0-0.50) 05/20/22 05:42 Baso # (Auto) 0.02 K/uL (0-0.2) 05/20/22 05:42 Immature Gran # (Auto) 0.05 K/uL (0.01-0.20) 05/20/22 05:42 Sodium 135 mmol/L (136-145) L 05/20/22 05:42 Potassium 4.3 mmol/L (3.5-5.1) 05/20/22 05:42 Chloride 102 mmol/L (98-107) 05/20/22 05:42 Carbon Dioxide 26 mmol/L (21-32) 05/20/22 05:42 Anion Gap 7 (3-11) 05/20/22 05:42 BUN 12 mg/dl (6-23) 05/20/22 05:42 Creatinine 0.70 mg/dl (0.6-1.2) 05/20/22 05:42 Est Cr Clr Drug Dosing 81.0 ml/min 05/20/22 05:42 Est GFR ( Amer) 105.4 ml/min 05/20/22 05:42 Est GFR (Non-Af Amer) 90.9 ml/min 05/20/22 05:42 BUN/Creatinine Ratio 17.1 (10-20) 05/20/22 05:42 Glucose 142 mg/dl (70-99(Fasting)) H 05/20/22 05:42 POC Glucose 157 mg/dl (70-99) H 05/19/22 12:02 Calcium 9.6 mg/dl (8.5-10.1) 05/20/22 05:42 Magnesium 1.7 mg/dl (1.7-2.4) 05/19/22 13:10 Total Bilirubin 0.7 mg/dl (0.2-1.0) 05/20/22 05:42 AST 18 U/L (13-39) 05/20/22 05:42 ALT 23 U/L (7-52) 05/20/22 05:42 Alkaline Phosphatase 67 U/L (34-104) 05/20/22 05:42 Total Protein 6.2 gm/dl (6.0-8.3) 05/20/22 05:42 Albumin 3.5 gm/dl (3.4-5.0) 05/20/22 05:42 Globulin 2.7 gm/dl (2.5-4.0) 05/20/22 05:42 Albumin/Globulin Ratio 1.3 (0.9-2) 05/20/22 05:42 Nasal Screen MRSA (PCR) Negative (Negative) 05/19/22 00:00 Blood Type B Positive 05/19/22 06:46 Antibody Screen NEGATIVE 05/19/22 06:46 Impressions Knee X-Ray 05/19/22 15:37 XR knee LT 1 or 2V routine CLINICAL HISTORY: Surgical Post Op TECHNIQUE: 2 views of the left knee were obtained. Comparison: Comparison is made to left knee radiographs 05/19/2022 FINDINGS: Patient is status post total knee arthroplasty with expected postsurgical changes including soft tissue swelling and subcutaneous emphysema. No periarticular lucency or hardware fracture is seen. IMPRESSION: Expected postoperative appearance status post placement of total knee arthroplasty. ACT 112: Negative or not required by law. Electronically signed by: Pritesh Armstrong M.D. 05/19/2022 4:09 PM
--- NOTE | 2022-05-20 10:48 | Communication Note ---
Date of Service: May 20, 2022 By CMS guidelines, a determination that the admission or continued stay is not medically necessary has been made by a member of the UR committee and a physi jose for this hospital stay, therefore a Code 44 will be completed and the Inpatient admission will be changed to outpatient. Connie Galarza M.D.
--- NOTE | 2022-05-20 10:52 | Discharge Summary ---
Date of Service May 20, 2022 Admission HPI Per Admitting Provider Mary Jane Ibarra is a 66yo F with a PMhx of preDM, HLD, breast cancer, bilateral OA with surgical history of knee replacement [] who presented for scheduled L TKA. GRIFFIN FRYE was called in ASU post-op for symptomatic b radycardia with hypotension. Pt pressure improved with supine positing. 1L NSS, atropine ordered. Prior to atropine delivery 1x phenylephrine was given. Pt pressure and HR normalized, atropine was held. Pt remained clinically asymptomatic without lightheadedness/dizziness/confusion at bedside. Pt was transferred to PCU for additional monitoring. Pt received oxycodone-apap [] [] phenylephrine [] Atropine Past surgical history: Bilateral mastectomy with pectoral reconstruction Cholecystectomy Total hysterectomy Right knee replacement 2021 with epidural block No prior reaction anesthesia with above procedures Post Operative Symptomatic Bradycardia and hypotension - BP/HR normalized w/ 1x phenylephrine. Atropine held - 1L NSS xfused - EKG nsr, no ST segment changes. No inversion. No HB. - Atropine control systems eng for sx oscar - Past sx history [] - Pt reports she takes no other medications, last medication was zyrtek 2 days prior to surgery [] Principal Diagnosis Post-op hypotension and bradycardia, related to anesthesia Left TKA Discharge Exam Constitutional WD/WN, vitals as above Eyes + anicteric sclerae Respiratory normal respiratory effort, lungs clear to auscultation Cardiovascular RRR, no murmur, no edema Gastrointestinal (Abdomen) normal bowel sounds, soft, nontender, no hepatosplenomegaly Musculoskeletal Extremities: + extremities abnormal to inspection (LLE in knee immpbilizer) Neurologic PERRL, EOMI, accommodation nl, no face palsy, no dysarthria Psychiatric A+Ox3, euthymic affect Discharge Data Allergies Allergy/AdvReac Type Severity Reaction Status Date / Time adhesive Allergy Mild pruritic, Verified 05/19/22 06:34 erythematous rash morphine AdvReac Mild nausea, Verified 05/19/22 06:34 resolved with added medication, pt cannot recall Procedures Performed Operation Date: 05/19/22 08:15 Actual Procedures p Left Total Knee Arthroplasty, cemented.(Left) - Evelio Gudino MD Ordered Studies 05/19/22 05:00 US - OR guided needle placemen Routine Hospital Course (1) Hypotension: Brief drop in BP to 60-70s systolic with bradycardia to the 30s post op in recovery. Code purple called and Anesthesia gave one dose of phenylephrine with immediate improvement likely related to spinal anesthesia no further issues since then, BPs and tele monitoring both normal with NSR Pt feeling very well and stable for dc to home with home health (2) Bradycardia: as above, resolved (3) S/P total knee arthroplasty: post op care as per Ortho ASA 81mg po bid x 30 days, THEE couch home with home PT/OT mild drop in hgb stable pain control with oxycodone, tylenol bowel regimen with senna, docusate, has h/o post op constipation in past (4) Pre-diabetes: no meds, diet controlled Plan Dispo-stable for dc to home today Discussed pt with DJ of Ortho Total Time Total Time Spent Total Time Spent (In Minutes): 35 min Discharge Plan Discharge Items Patient Disposition: Home - Home Health Services Reason For Visit: Left Knee Osetoarthritis Discharge Diagnosis: Left Knee Osteoarthritis Hypotension and bradycardia-reaction to anesthesia Condition on Discharge: Good Activity: As commented below Lifting: None Bathing: Keep incision dry Bathing Comment: May shower tomorrow Sexual Activity: Wait until after follow-up appointment Exercise/Sports: Wait until after follow-up appointment Driving/Machine Use: No driving until cleared by orthopedic shoe fitter Weightbearing: Left weightbearing Weightbearing Comment: as tolerted with walker and immobilizer for first 48 hrs Non-emergency contact: Surgeon Call non-emergency contact if: you have any medication questions, your pain is not controlled, your temperature is above 101.5, your wound has increased drainage and your wound pain has increased Follow-up/Referrals: [facility] Home Health: [place] [Outside] (as per surgeon's office ) Kale Summers MD [Primary Care Provider] - 05/20/22 8:45 am (PCP follow up appointment: May 23, 2022 @ 8:[address] Vazquez.) Diet: Regular Addtl Attending Provider Instructions: Post-operative Instructions Dear Patient and Family/Friends, Before you are discharged from the hospital, it is important to know what to expect when you get home after surgery. To that end, we have created this sheet of discharge instructions which covers many commonly asked questions. Make sure you go through this sheet in its entirety with your nurse before you are discharged. Please note that we will go over the specifics of your surgery and recovery when you return for your first post-operative visit. Sincerely, Dr. Gudino Medications Please take all medications prescribed as previously instructed. Pain Expect to be in a fair amount of pain after surgery. Remember, our goal is not to eliminate your pain, but to make it tolerable. It is a good idea to stay ahead of your pain by taking the medications you were prescribed once you get home. Typically, the pain starts improving 3-7 days after surgery. You should start weaning off the narcotic pain medication (oxycodone, hydrocodone, hydromorphone, morphine) as soon as your pain improves. Please call our office if your pain is not adequately controlled. Ice Ice your operative site at least 5 times a day for 15-30 minutes at a time. Make sure you have a thin cloth between the ice or cooling unit and your skin to prevent amin bite. This is especially important if you received a nerve block. Continue icing your operative site for the first 5-7 days after surgery, then as needed. Diet/Nausea/Vomiting Start by drinking clear liquids and eating crackers. If you can tolerate this, then you may resume your normal diet. If you feel nauseated or vomit, take Zofran/ondansetron (if prescribed). Please call our office if you have intractable nausea or vomiting, or, if after hours, you may go to the Emergency Room for help. Constipation Constipation is a common side effect of narcotic pain medication. If you have not had a bowel movement within 2 days after surgery, we recommend purchasing an over the counter laxative such as Milk of Magnesia, Dulcolax, or Miralax from a local pharmacy, and taking it as instructed. Call our clinic if any questions. Slings and Braces If you were placed in a sling or brace, it must be worn at all times, including sleep. You may remove your sling or brace for physical therapy, home exercises, and showering. The length of time you will be in your brace and range of motion restrictions depends on what surgery you had; these details will be reviewed at your first post-operative appointment. Nerve block The anesthesia team sometimes places a nerve block to help with post-operative pain control. This results in significant numbness and inability to move the extremity. The nerve block usually wears off in 8-12 hours, but sometimes can last up to 24 hours. Please call our office if you are still unable to move your extremity after 24 hours, unless you received a pain pump to take home. Nerve blocks typically wear off quickly, so start taking pain medication as soon as you start feeling soreness near your surgical site. Weight bearing and Range of Motion. Do not bear any weight through your operative extremity immediately after surgery. If you had upper extremity surgery, do not lift anything with that arm. If you are in a knee brace, keep it locked in place until your follow-up. We will discuss your weight bearing, range of motion, and lifting restrictions in detail at your first post-operative appointment. Continuous Passive Motion (CPM) Machine If you were prescribed a CPM machine, it will start after your first post- operative appointment, at which time we will give you instructions on the range of motion settings and duration of treatment Physical therapy You will be given a prescription for physical therapy or occupational therapy at your first post-operative appointment. Typically, patients start therapy within 1 week of surgery Wound care and showering We will inspect your wound at your first post-operative visit, and may do a dressing change at that time. Most patients will be in a water-proof dressing that is removed 14 days after surgery. It is normal to see some dried blood on the dressing. Do not remove your dressing, paper strips or sutures yourself unless you are given permission. Showering is allowed the day after surgery. Do not scrub or remove any dressings. The wound should not be submerged underwater (i.e. in a bathtub or pool) until 4 weeks after surgery THEE stockings If you were given white stockings, these are to be worn at all times except to shower (on both legs) for the first 2 weeks after surgery. Driving You may not drive while taking narcotic pain medication or while in a cast, splint, sling or brace. You, the patient, need to make the final determination about when you are safe to drive, however, the earliest you may consider driving after surgery is below: Hand/Wrist/Elbow Surgery: 3 days Shoulder Surgery: 2 weeks Hip,/Knee/Ankle Surgery: 4 weeks Fracture repair: 6 weeks Return to Work Your return to work depends on what surgery was done and what type of work you do. Please bring any paperwork your employer needs completed to your first post-operative visit. Also, bring a description of your job duties, as this helps us to understand what risks you may face at work. Travel Avoid long distance travel (greater than 1 hour) in airplanes and cars for the first 6 weeks after surgery. If you must travel, you need to have a Doppler ultrasound done before you travel to rule out a blood clot in your legs. Follow-up You should have a follow-up appointment already scheduled 1-2 days after surgery. If not, please contact our office to make this appointment before you leave the hospital. When to call the office It is normal to have swelling and bruising in the limb that was operated on. This will improve with time. It is also normal to have fevers for the first 2 days after surgery. Reasons you should call your doctor include: Uncontrolled pain; Nausea, vomiting, or constipation that does not improve with medication; Fevers over 101.5, chills, sweats; Drainage or bleeding from the wound; Foul odor; Spreading areas of redness; Any other concerns Pending Studies at Discharge: No Stand-Alone Forms: Anesthesia/Sedation, Adult, [facility] Medications and DC Order Prescriptions: New oxycodone 5 mg Tablet 5 - 10 mg PO Q4H PRN (Reason: pain) Qty: 28 0RF sennosides [Senokot] 8.6 mg Tablet 17.2 mg PO HS Qty: 60 0RF acetaminophen [Tylenol Extra Strength] 500 mg Tablet 1,000 mg PO Q8 Qty: 30 0RF docusate sodium 100 mg Capsule 100 mg PO BID Qty: 60 0RF aspirin 81 mg tablet,chewable 81 mg PO BID 30 Days Qty: 60 0RF Rx Instructions: OTC Continued diclofenac sodium 75 mg tablet,delayed release (DR/EC) 75 mg PO BID Discharge Orders: Discharge Order (Routine); Ordered 05/20/22 Ordered By: Connie Fong/Other Patient Handouts: DVT Post Op Prevention Admission Data Admit Date/Time: 05/19/22 12:51 Attending Provider: Connie Galarza Admit Provider: Evelio Justice Primary Care Provider: Kale Summers Coding Level of Care Code 09987 INP/OBS DISCH >30 MIN Diagnoses Hypotension I95.9 Bradycardia R00.1 S/P total knee arthroplasty Z96.659 Pre-diabetes R73.03
[2022-05-20] MEDS ORDERED: ATROPINE SULFATE 0.1 MG/ML 10ML SYR IV ONE (11:29)
== END 2022-05-20 11:30 | disposition home health service (06) | DRG 470 ==
LOC: ASU 06:11 → SUATTDRO 12:51 → INTOOBSV 12:51 → 1E 12:51